=== PATIENT | female | born 1940 | race Caucasian/White ===

== ENCOUNTER 2017-03-13 19:00 | Emergency (ER) | payer OTHER ==
--- NOTE | 2017-03-13 19:19 | PDOC ---
History of Present Illness - General History Source: Patient Exam Limitations: No Limitations - History of Present Illness Initial Comments: 03/13/17 19:59 The patient is a 76 year old female, with significant past medical history of HTN, HLD, who presents today complaining of RLE swelling and pain. The patient explains that she was at a wedding at [place] when she fell down 8 stairs and injured her right leg 5 days ago. There were no broken bones. The patient flew back to [place] 4 days ago. She visited an Urgent care who advised her to get an ultrasound. 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 Denies fever, chills. Denies SOB, chest pain. Denies abdominal pain. No hx of DVT. No family hx of DVT. Allergies: none reported PCP- Dr. Chakraborty Review of systems General: No fevers or chills, no weakness, no weight loss HEENT: No change in vision. No sore throat,. No ear pain CardioVascular: No chest pain or shortness of breath Respiratory:No cough, or wheezing. Gastrointestinal: no nausea, vomiting, diarrhea or constipation, No rectal bleeding Genitourinary: No dysuria, hematuria, or frequency Musculoskeletal: +right lower extremity swelling. No joint or muscle pain or swelling Neurologic: No headache, vertigo, dizziness or loss of consciousness Psychiatric: nor depression Skin: +bruising and abrasions to the right calf. No rashes or easy bruising Endocrine: no increased thirst or abnormal weight change Allergic: no skin or latex allergy All other systems reviewed and normal Physical Exam GENERAL: The patient is awake, alert, and fully oriented, in no acute distress. HEAD: Normal with no signs of trauma. EYES: Pupils equal, round and reactive to light, extraocular movements intact, sclera anicteric, conjunctiva clear. RIGHT LOWER EXTREMITY: There is a large contusion with some small abrasions on the anterior redmond lower leg. Associated ecchymosis of lower leg ankle and foot. There is no palpable cord of the inner thigh. There is no bony tenderness neurovascular intact. NEUROLOGICAL: Normal speech, normal gait. PSYCH: Normal mood, normal affect. SKIN: Warm, Dry, normal turgor, no rashes or lesions noted. <Laila Salmeron - Last Filed: 03/13/17 20:27> - General History Source: Patient Exam Limitations: No Limitations - History of Present Illness Initial Comments: 03/13/17 20:30 A portion of this note was documented by scribe services under my direction. I have reviewed the details of the note, within reason, and agree with the documentation. The case summary and management plan written by me. Assessment and plan: This is 76-year-old female comes in with right lower extremity swelling status post trauma and an airplane ride. Patient had an ultrasound Doppler that was negative for DVT. Patient discharged home will follow-up with her primary care doctor as needed <Patricia Hyman I - Last Filed: 03/13/17 20:31> - General Chief Complaint: Injury Stated Complaint: RIGHT LEG SWELLING & BRUISING Time Seen by Provider: 03/13/17 19:17 Past History <Laila Salmeron - Last Filed: 03/13/17 20:27> - Past Medical History HTN: Yes Hypercholesterolemia: Yes Thyroid Disease: Yes - Surgical History Appendectomy: Yes - Psycho/Social/Smoking Cessation Hx Anxiety: No Suicidal Ideation: No Smoking History: Never smoked Hx Alcohol Use: Yes ("moderatly") Substance Use Type: Alcohol <Patricia Hyman I - Last Filed: 03/13/17 20:31> - Past Medical History Allergies/Adverse Reactions: Allergies Allergy/AdvReac Type Severity Reaction Status Date / Time No Known Allergies Allergy Verified 04/16/14 17:07 Home Medications: Ambulatory Orders Atorvastatin Ca 03/13/17 Levothyroxine 03/13/17 Losartan Potassium 03/13/17 *Physical Exam - Vital Signs Last Vital Signs Temp Pulse Resp BP Pulse Ox 98.1 F 81 16 118/64 96 03/13/17 19:11 03/13/17 19:11 03/13/17 19:11 03/13/17 19:11 03/13/17 19:11 <Laila Salmeron - Last Filed: 03/13/17 20:27> ED Treatment Course - RADIOLOGY Radiograph Interpretation: 03/13/17 20:27 EXAM#: TYPE/EXAM: RESULT: [id number] US/DUPLEX VASCUL US-1 LEG HISTORY PROVIDED: Pain and swelling right lower extremity. Real time and doppler evaluation of the right lower extremity demonstrates the following: There is no evidence of deep venous thrombosis within the common, deep and superficial femoral veins, as well as the popliteal and posterior tibial veins. The greater saphenous vein is also patent. These veins are fully compressible, as well. IMPRESSION: No evidence of deep venous thrombosis. Reported By: Sabino Porter MD 03/13/172022 <Laila Salmeron - Last Filed: 03/13/17 20:27> *DC/Admit/Observation/Transfer - Attestations Scribe Attestion: 03/13/17 20:01 Documentation prepared by TRISTEN Mathews, acting as site medical director for Patricia Hyman MD. <Laila Salmeron - Last Filed: 03/13/17 20:27> - Discharge Dispostion Admit: No <Patricia Hyman I - Last Filed: 03/13/17 20:31> Diagnosis at time of Disposition: Swelling of right lower extremity - Discharge Dispostion Disposition: HOME Condition at time of disposition: Good - Referrals Referrals: Sher Chakraborty MD [Primary Care Provider] - - Patient Instructions Additional Instructions: Return to the emergency department immediately with ANY new, persistent or worsening symptoms. Continue any medications as previously prescribed by your physician. You should follow up with your primary doctor as soon as possible regarding today's emergency department visit. . Please make sure your doctor reviews the results of your emergency evaluation. Thank you for coming to the Emergency Department today for your care. It was a pleasure to see you today. Please note that your evaluation is INCOMPLETE until you follow-up with your doctor.
[2017-03-13 19:24] VITALS: BP 118/64; PULSE 81; TEMP 98.1; BMI 25.1
== END 2017-03-13 20:38 | disposition home or self-care (01) ==
LOC: FER 19:00
DX: M79.89 Other specified soft tissue disorders (principal); I10 Essential (primary) hypertension; E78.5 Hyperlipidemia, unspecified; W10.9XXA Fall (on) (from) unspecified stairs and steps, initial encounter; Y93.89 Activity, other specified; Y92.89 Other specified places as the place of occurrence of the external cause
CPT/HCPCS: 93971-TC; 99281-25